=== PATIENT | female | born 1965 | race Caucasian/White ===

== ENCOUNTER → 2018-02-18 | Outpatient (CLI) | payer OTHER ==
[~2018-02-18] VITALS: Ht 162.6 cm; Wt 102.1 kg
[~2018-02-18] MED LIST: FIORICET 50-301 EACH PO; HYDROCHLOROTH12.5 M3 PO; LOSARTAN POTAS100 MG PO; NORVASC2.5 MG PO; ULTRAM50 MG PO; VIBRAMYCIN100 MG PO; VITAMIN D-32000 UNI2 PO; ZOFRAN4 MG PO
== END | disposition home or self-care (01) ==
LOC: AMB 10:31
PROC: 0DJD8ZZ Inspection of Lower Intestinal Tract, Via Natural or Artificial Opening Endoscopic (ICD-10-PCS; principal; 2018-02-18)
DX: Z12.11 Encounter for screening for malignant neoplasm of colon (principal); K64.8 Other hemorrhoids; I10 Essential (primary) hypertension; E66.9 Obesity, unspecified; Z68.27 Body mass index [BMI] 27.0-27.9, adult; M85.80 Other specified disorders of bone density and structure, unspecified site; Z86.19 Personal history of other infectious and parasitic diseases; Z88.5 Allergy status to narcotic agent
CPT/HCPCS: 93005; J2250